=== PATIENT | female | born 1960 | race Caucasian/White ===

== ENCOUNTER 2020-05-09 14:30 | Outpatient (CLI) | payer OTHER, SELFPAY | END 2020-05-09 14:31 | disposition home or self-care (01) | LOC: ANHCOVIDVC 14:30 | PROVIDERS: PCP Family Medicine | DX: Z23 Encounter for immunization (principal) | CPT/HCPCS: 0001A; 91300 ==

== ENCOUNTER 2020-05-30 14:28 | Outpatient (CLI) | payer OTHER, SELFPAY | END 2020-05-30 14:29 | disposition home or self-care (01) | LOC: ANHCOVIDVC 14:29 | PROVIDERS: PCP Family Medicine | DX: Z23 Encounter for immunization (principal) | CPT/HCPCS: 0002A; 91300 ==

== ENCOUNTER 2020-09-11 11:22 | Emergency (ER) | payer OTHER, SELFPAY ==
[2020-09-11 11:32] VITALS: BP 129/69; PULSE 78; RESP 18; TEMP 36.8; O2SAT 100
--- NOTE | 2020-09-11 11:41 | ED.SKABFB ---
HPI - Skin/Abscess/Foreign Bdy General Chief complaint: Skin/Abscess/Foreign Body Stated complaint: Rt hand swelling History of Present Illness HPI narrative: This is a 60 year old that was stung by a bee yesterday on her hand . She has taken zyrtec D, Benadryl every 6 hours but her hand on the right has swelled up like a ballon and now it is going to her wrist up her arm and she knows she may needs something for it. Patient denies any shortness of breath and or any facial swelling no wheezing . Related Data Allergies Allergy/AdvReac Type Severity Reaction Status Date / Time bee venom protein (honey bee) AdvReac Intermediate Swelling Verified 09/11/20 11:59 [bees] Review of Systems Review of Systems: Narrative: CONSTITUTIONAL: Denies fever, chills, or sweats. EYES: Denies visual changes, redness, or discharge. ENT: Denies rhinorrhea, congestion, sore throat, or otalgia. CARDIOVASCULAR:Denies chest pain, palpitations, or edema. RESPIRATORY: Denies cough or dyspnea. GASTROINTESTINAL: Denies abdominal pain, nausea, vomiting, or diarrhea. GENITOURINARY: Denies dysuria or hematuria. SKIN:[Denies rash or itching. right hand swollen MUSCULOSKELETAL:Denies back pain, joint pain, or myalgia. NEUROLOGIC: Denies headache, numbness, or weakness. PSYCHIATRIC:Denies anxiety or depression PMFSH Past Medical History Medical History Internal hemorrhoid Social History Social History (Updated 08/09/20 @ 10:29 by Jessica Taylor) Years smoked: 30 Smoking status: Former smoker Tobacco type: cigarettes Second hand tobacco smoke exposure: No Smoking end date: 03/04/10 Alcohol intake: current Alcohol use details: social drinker Substance use: never Substance use type: does not use Gender identity (if verbalized by the patient): Female Comments At time as signature, I have reviewed and agree with nursing past medical, social, surgical and family history. Please see nursing chart for further information. There is no relevant family history pertinent to the presenting complaint. Exam Narrative: Exam Narrative: GENERAL:Well-appearing, well-nourished, and in no acute distress. HEAD:Normocephalic, atraumatic. EYES: PERRLA and EOMI. ENT: Nares clear, no rhinorrhea or epistaxis. Mucous membranes moist. NECK: Supple. CHEST: Clear to auscultation. No respiratory distress. HEART: Regular rate and rhythm. No murmur heard. Normal peripheral pulses. ABDOMEN: Soft, nontender, nondistended, normal active bowel sounds. EXTREMITIES: Normal range of motion. right hand 3+ edema up to wrist which is starting to swell no erythema no able to see where she was stung at. SKIN: Warm, dry, no rash. NEURO: No focal deficits. Alert and oriented x3. Course ADDICTION TREATMENT COUNSELOR/PA Physician Supervision Discussion with patient about allergic reaction and anaphylactic reaction. Use of epi pen etc... Vital Signs Vital signs: Vital Signs Temperature 98.3 F 09/11/20 11:32 Pulse Rate 78 09/11/20 11:32 Respiratory Rate 18 09/11/20 11:32 Blood Pressure 129/69 09/11/20 11:32 Pulse Oximetry 100 09/11/20 11:32 Temperature 98.3 F 09/11/20 11:32 Pulse Rate 78 09/11/20 11:32 Respiratory Rate 18 09/11/20 11:32 Blood Pressure 129/69 09/11/20 11:32 Pulse Oximetry 100 09/11/20 11:32 MDM - Skin/Abscess/Foreign Bdy Differential Diagnosis Differential diagnosis: Likely abscess of skin or subcutaneous tissue, urticaria, allergic reaction to drug, cellulitis, eczema, insect bites and impetigo Discharge Plan Discharge Clinical Impression: Allergic reaction to bee sting Patient Disposition: Home, Self-Care Condition: Stable Instructions: Antibiotic Form, Insect Bite or Sting (ED), Anaphylaxis (ED), Cold Compress or Soak (ED) Additional Instructions: Use skin creams/lotion, such as those containing calamine or pramoxine to reduce itchiness Avoid scratching
== END 2020-09-11 12:05 | disposition home or self-care (01) ==
PROVIDERS: Emergency Provider Nurse Practitioner Family; PCP Family Medicine
DX: T63.441A Toxic effect of venom of bees, accidental (unintentional), initial encounter (principal); Z87.891 Personal history of nicotine dependence
CPT/HCPCS: 96372; 99213; G0463; J1100

== ENCOUNTER 2023-05-13 14:52 | Outpatient (CLI) | payer OTHER, SELFPAY ==
--- NOTE | ~2023-05-13 | DEXA_ITS ---
Bone Density Report Name: LATANYA RODRIGES Age: 63 Sex: Female Ethnicity: White Date of : 1960 Indication: postmenopausal; screening for osteoporosis; height loss; hysterectomy; Referring Provider: MICHAEL PERRY Study: Bone densitometry was performed. Exam Date: May 13, 2023 Accession number: [id number] Bone Density: Region BMD T-score Z-score Classification AP Spine(L1-L4) 0.995 -0.5 1.0 Normal Femoral Neck (Left) 0.770 -0.7 0.6 Normal Total Hip (Left) 0.827 -0.9 0.1 Normal Femoral Neck (Right) 0.705 -1.3 0.0 Osteopenia Total Hip (Right) 0.851 -0.7 0.3 Normal Total Hip Mean 0.839 -0.8 0.2 Normal World Health Organization criteria for BMD impression classify patients as: Normal (T-score at or above -1.0), Osteopenia (T-score between -1.0 and -2.5), or Osteoporosis (T-score at or below -2.5). 10-year Fracture Risk(1): Major Osteoporotic Fracture 7.9% Hip Fracture 0.6% Reported Risk Factors: [place] (), Neck BMD=0.705, BMI=25.6 (1) FRAX(R) Version 3.08. Fracture probability calculated for an untreated patient. Fracture probability may be lower if the patient has received treatment. Previous Exams: Region Exam Age BMD T-score BMD Change BMD Change Date g/cm2 vs Baseline vs Previous AP Spine (L1-L4) 05/13/2023 63 0.995 -0.5 -0.070 (-6.6%) -0.070 (-6.6%) 09/09/2017 57 1.066 0.2 Total Hip(Left) 05/13/2023 63 0.827 -0.9 -0.037 (-4.2%) -0.037 (-4.2%) 09/09/2017 57 0.864 -0.6 Total Hip(Right) 05/13/2023 63 0.851 -0.7 0.035 (4.3%)* 0.035 (4.3%)* 09/09/2017 57 0.816 -1.0 *Denotes significance at 95% confidence level, LSC for AP Spine = 0.022 g/cm2, LSC for Total Hip = 0.027 g/cm2 Clinical Information Provided by Patient: Has used the following medications: Vitamin D, Calcium Has the following medical conditions: Hysterectomy Patient maximum height was 67 Menopause Age: 56 No regular weight bearing exercise Drinks caffeinated beverages Onset of menses at age 16 Number of children 2 Impression: The patient has low bone mass, based on the Right Femoral Neck T-score. The patient has an estimated ten-year risk of hip fracture of 0.6% and an estimated ten-year risk of major fracture of 7.9%, based on the WHO FRAX algorithm. The BMD for the AP Spine (L1-L4) decreased, changing by -6.6% since the last DXA exam. The BMD for the Total Hip(Left) decreased, changing by -4.2% since t
== END 2023-05-13 14:53 | disposition home or self-care (01) ==
LOC: ANHIMG 14:53
PROVIDERS: PCP Family Medicine; Visit Provider Physician Assistant
DX: N95.1 Menopausal and female climacteric states (principal); M85.851 Other specified disorders of bone density and structure, right thigh
CPT/HCPCS: 77080

== ENCOUNTER 2024-05-23 09:41 | Outpatient (CLI) | payer OTHER, SELFPAY ==
--- OUTSIDE RECORDS SUMMARY | 2024-05-23 09:45 | XMS_ITS | Encounter Summary ---
Author Organization [facility] Address [facility] [place] [address] Care Team Providers Care Paper Supervisor Name Role Phone Ty Muhammad MD Primary Care Provider [phone] Encounter Details Date Type Department Care Team (Latest Contact Info) Description 01/07/2018 Abstract [facility] , Angélica Stone MD Social History Tobacco Use Types Packs/Day Years Used Date Smoking Tobacco: Never Assessed Comments Unknown Sex and Gender Information Value Date Recorded Sex Assigned at Not on file Legal Sex Female 6:53 PM CDT Gender Identity Not on file Sexual Orientation Not on file documented as of this encounter Plan of Treatment Not on file documented as of this encounter Visit Diagnoses Not on filedocumented in this encounter Care Teams Paper Supervisor Relationship Specialty Start Date End Date Ty Muhammad MD [address] [facility] [address] [place] [address] PCP - General FAMILY PRACTICE 12/15/18 documented as of this encounter
--- OUTSIDE RECORDS SUMMARY | 2024-05-23 09:45 | XMS_ITS | Clinical Summary ---
Author Organization [facility] Address [facility] [place] [address] Care Team Providers Care Range Aide Name Role Phone Ty Muhammad MD Primary Care Provider [phone] Family History Medical History Relation Comments Lung Cancer Mother Breast Cancer Neg Hx Relation Status Comments Mother Social History Tobacco Use Types Packs/Day Years Used Date Smoking Tobacco: Never Assessed Comments Unknown Sex and Gender Information Value Date Recorded Sex Assigned at Not on file Legal Sex Female 6:53 PM CDT Gender Identity Not on file Sexual Orientation Not on file Last Filed Vital Signs Vital Sign Reading Time Taken Comments Blood Pressure 130/72 02/27/2013 11:51 AM TEXTILE CONSERVATOR Pulse 80 02/27/2013 11:51 AM TEXTILE CONSERVATOR Temperature - - Respiratory Rate - - Oxygen Saturation - - Inhaled Oxygen Concentration - - Weight 68.9 kg (152 lb) 02/27/2013 11:51 AM TEXTILE CONSERVATOR Height 170.2 cm (5' 7 ) 02/27/2013 11:51 AM TEXTILE CONSERVATOR Body Mass Index 23.81 02/27/2013 11:51 AM TEXTILE CONSERVATOR Plan of Treatment Health Maintenance Due Date Last Done Comments Cervical Cancer Screening Pap Smear (Age 30 to 64) Every 3 Years 1960 Colorectal Cancer Screening Colonoscopy (10 Years) 1960 Annual Physical 1965 Hepatitis C 01/22/1980 DTaP, Tdap and Td Vaccines (1 - Tdap) 1981 Cervical Cancer Screening Pap with HPV Testing (Age 30 to 64) Every 5 Years 01/22/1992 Cervical Cancer Screening with HPV 01/22/1992 COVID-19 Vaccine (2023-25 season) 2023 Influenza Adult (#1) 2023 Mammogram Screening 09/09/2025 09/10/2023, 05/02/2022, 03/13/2021, Additional history exists RSV Immunization or 60+ Years (1 - 1-dose 75+ series) 2037 Zoster Vaccines Completed 06/06/2018, 04/16/2018 Meningococcal B Vaccine Aged Out No l onger eligible based on patient's age to complete this topic Meningococcal Vaccine Aged Out No celestina bishnu eligible based on patient's age to complete this topic Pneumococcal Vaccine: Pediatrics (0 to 5 Years) and At-Risk Patients (6 to 64 Years) Aged Out No longer eligible based on patient's age to complete this topic RSV Immunizations Under 20 Months Aged Out No longer eligible based on patient's age to complete this topic Procedures Procedure Name Priority Date/Time Associated Diagnosis Comments MG SCREENING W EVELIN MILDRED DIGI Routine 09/10/2023 9:06 AM CDT Encounter for screening mammogram for malignant neoplasm of breast from Last 3 Months or Most Recently Relevant to Health Maintenance Results * MG SCREENING W EVELIN MILDRED DIGI (09/10/2023 9:06 AM CDT) Anatomical Region Laterality Modality Breast Bilateral Mammography 09/10/2023 11:0 6 AM CDT Impressions 09/10/2023 11:07 AM CDT ===== IMPRESSION: ===== 1. Stable mammographic appearance with no new findings to suggest malignancy in either breast. Assessment: ACR BI-RADS 2 - BENIGN FINDING(S) Recommendation: 1:Routine Screening Bilateral Comments: Ordered By: TY MUHAMMAD Interpreted By: Brad Christy MD, 09/10/2023 11:06 AM Narrative 09/10/2023 11:07 AM CDT Examination: Digital bilateral screening mammogram with 3D Tomosynthesis Exam Date/Time: 09/10/2023 8:46 AM Reason For Exam: sceening No prior breast procedures. No personal or family history of breast cancer. No current complaints. Comparison: Mammograms from 05/02/2022 03/13/2021 01/05/2020 Technique: Digital screening mammography of both breasts was performed in addition to 3-D Tomosynthesis technique. This study was read with the assistance of a computer-aided detection system. Tissue density: There are scattered areas of fibroglandular density. Findings: Benign axillary lymph nodes again seen. Benign punctate calcifications bilaterally. No suspicious interval change to parenchymal pattern bilaterally from prior studies. There is no new focal asymmetry, dominant mass lesion, area of skin thickening, or cluster of suspicious appearing calcifications in either breast to suggest malignancy. us Ty Muhammad MD MAMMO Final Result from Last 3 Months or Most Recently Relevant to Health Maintenance Insurance [facility] Care Teams Range Aide Relationship Specialty Start Date End Date Ty Muhammad MD [address] [address] [address] [place] [address] PCP - General FAMILY PRACTICE 12/15/18
[2024-05-23 10:09] LABS: Basophils Percent Auto 0.6 % (0.2-1.2); Eosinophils Absolute Auto 0.1 K/mm3 (0-0.3); Eosinophils Percent Auto 1.5 % (0-4.4); Hematocrit 37.1 % (37.0-47.0); Hemoglobin 11.5 g/dL (12.0-15.0); Immature Granulocyte Absolute 0.02 K/mm3 (0.00-0.031); Immature Granulocyte Percent A 0.3 % (0-0.5); Lymphocytes Absolute Auto 1.69 K/mm3 (0.9-3.2); Lymphocytes Percent Auto 26.1 % (18.3-44.2); Mean Corpuscular Hemoglobin 25.8 pg (26-34); Mean Corpuscular Volume 83.2 fl (80-100); Mean Platelet Volume 10.3 fl (7.4-10.4); Monocytes Absolute Auto 0.3 K/mm3 (0.1-0.6); Monocytes Percent Auto 4.5 % (2.6-8.5); Neutrophils Absolute Auto 4.3 K/mm3 (1.3-6.7); Platelet Count Result 330 k/mm3 (150-375); Red Blood Count 4.46 M/mm3 (4.2-5.4); Red Cell Distribution Width 14.2 % (11.5-14.5); White Blood Count 6.5 K/mm3 (4.5-10.0)
[2024-05-23 10:18] LABS: Iron 46 ug/dL (37-170)
[2024-05-23 10:28] LABS: Percent Iron Saturation 14 % (20-50)
== END 2024-05-23 09:42 | disposition home or self-care (01) ==
LOC: ANHLAB 09:43
PROVIDERS: PCP Family Medicine; Visit Provider Student in an Organized Health Care Education/Training Program
DX: D50.9 Iron deficiency anemia, unspecified (principal)
CPT/HCPCS: 36415; 83540; 83550; 85025

== ENCOUNTER 2024-06-04 01:55 | Day surgery (SDC) | payer OTHER, SELFPAY ==
[2024-05-25 13:56] VITALS: BMI 21.5
--- OUTSIDE RECORDS SUMMARY | 2024-06-04 01:58 | XMS_ITS | Encounter Summary ---
Author Organization [facility] Address [facility] [place] [address] Care Team Providers Care Grey Goods Tester Name Role Phone Ty Muhammad MD Primary Care Provider [phone] Encounter Details Date Type Department Care Team (Latest Contact Info) Description 01/07/2018 Abstract [facility] , Angélica Stone MD [...] on filedocumented in this encounter Care Teams Grey Goods Tester Relationship Specialty Start Date End Date Ty Muhammad MD [address] [facility] [address] [place] [address] PCP - General FAMILY PRACTICE 12/15/18 documented as of this encounter
--- OUTSIDE RECORDS SUMMARY | 2024-06-04 01:58 | XMS_ITS | Clinical Summary ---
Author Organization [facility] Address [facility] [place] [address] Care Team Providers Care Account Engineer Name Role Phone Ty Muhammad MD Primary Care Provider [phone] Family History Medical History Relation Comments Lung [...] Comments Blood Pressure 130/72 02/27/2013 11:51 AM REGULATORY MANAGER Pulse 80 02/27/2013 11:51 AM REGULATORY MANAGER Temperature - - Respiratory Rate - - Oxygen Saturation - - Inhaled Oxygen Concentration - - Weight 68.9 kg (152 lb) 02/27/2013 11:51 AM REGULATORY MANAGER Height 170.2 cm (5' 7 ) 02/27/2013 11:51 AM REGULATORY MANAGER Body Mass Index 23.81 02/27/2013 11:51 AM REGULATORY MANAGER Plan of Treatment Health Maintenance Due Date [...] Cancer Screening with HPV 01/22/1992 COVID-19 Vaccine (2023- season) 2023 Mammogram Screening 09/09/2025 09/10/2023, 05/02/2022, 03/13/2021, [...] calcifications in either breast to suggest malignancy. Ty Muhammad MD MAMMO Final Result from Last 3 Months or Most Recently Relevant to Health Maintenance [facility] Care Teams Account Engineer Relationship Specialty Start Date End Date Ty Muhammad MD [address] [place] [address] PCP - General FAMILY PRACTICE 12/15/18
[2024-06-04 08:13] VITALS: BP 140/84; PULSE 70; RESP 16; TEMP 36; O2SAT 100; BMI 24.3
[2024-06-04] MEDS: LACTATED RINGERS 1,000 ML 150 ML IV CONT (08:22)
--- NOTE | 2024-06-04 09:02 | PM.HPGS ---
History of Present Illness History of Present Illness Consent: Risks, benefits, and alternatives have been discussed and questions answered. Patient agrees to proceed with procedure. Chief complaint: hx of colon polyps Narrative: Vanessa Astorga is a 64 year old female with colon polyp, last colonoscopy 2019 Review of Systems Review of Systems: All systems reviewed & are unremarkable except as noted in HPI and below PMFSH Past Medical History Medical History (Updated 06/04/24 @ 09:02 by Nico Juarez MD) Colon polyp Internal hemorrhoid Social History Social History Social History: Years smoked: 30 Smoking status: Former smoker Tobacco type: cigarettes Second hand tobacco smoke exposure: No Smoking end date: 03/04/10 Alcohol intake: current Alcohol use details: social drinker Substance use: never Substance use type: does not use Living arrangements: with family Occupation/Education: occupation Gender identity (if verbalized by the patient): Female Sexual Orientation (if Verbalized by the Patient): Straight or Heterosexual Meds Home Medications and Allergies Home Medications ?Medication ?Instructions ?Recorded ?Confirmed ?Type cyclobenzaprine 5 mg tablet 5 mg PO DAILY PRN muscle spasm #30 05/13/23 05/25/24 Rx tabs calcium 166.66 mg-vit D3 0.83 1 cap PO DAILY 05/25/24 06/04/24 History mcg-mag 83 ct-G5-gdfap-K1-mins capsule (Calcium Complex) multivitamin (Daily Multi-Vitamin 1 tablet PO DAILY 05/25/24 06/04/24 History tablet) Allergies Allergy/AdvReac Type Severity Reaction Status Date / Time bee venom protein (honey AdvReac Intermediate Swelling Verified 06/04/24 08:12 bee) (bees) Vital Signs Vital Signs - 24 hr 06/04/24 08:13 Temperature 96.8 F L Pulse Rate 70 Respiratory Rate 16 Blood Pressure 140/84 Pulse Oximetry 100 Oxygen Delivery Room Air Exam Const: General: comfortable and no acute distress HENMT: Face/Nose/Sinus: Normal nares present Eyes: General: appearance normal, both eyes and all related structures Neck: Neck: no JVD Resp: Auscultation: clear to auscultation bilaterally Cardio: Rate: regular rate Rhythm: regular rhythm GI: Inspection: non-distended GI Palp: Yes Soft to palpation Skin: General skin exam: normal color Extrem: General: normal to inspection Psych: Mental Status: mental status grossly normal Assessment and Plan Assessment and plan (1) Colon polyp: Code(s): K63.5 - Polyp of colon Status: Acute Assessment and Plan: colonoscopy
--- NOTE | 2024-06-04 09:03 | WPDANESEPPF ---
Anes - Initial Pre Proc Eval Procedure: Operation Date: 06/04/24 09:30 Proposed Procedures p Colonoscopy - Nico Juarez MD Date/Time: 06/04/24 09:03 Surgeon: Nico Juarez MD Pre Op Diagnosis: hx of colon polyps Patient Data Age: 64 Gender: F Height: 1.7 m Weight: 70.5 kg Last Vital Signs Temp 96.8 F L 06/04/24 08:13 Pulse 70 06/04/24 08:13 Resp 16 06/04/24 08:13 BP 140/84 06/04/24 08:13 Pulse Ox 100 06/04/24 08:13 O2 Del Method Room Air 06/04/24 08:13 Allergies Allergy/AdvReac Type Severity Reaction Status Date / Time bee venom protein (honey AdvReac Intermediate Swelling Verified 06/04/24 08:12 bee) (bees) Home Medications ?Medication ?Instructions ?Recorded ?Confirmed ?Type cyclobenzaprine 5 mg tablet 5 mg PO DAILY PRN muscle spasm #30 05/13/23 05/25/24 Rx tabs calcium 166.66 mg-vit D3 0.83 1 cap PO DAILY 05/25/24 06/04/24 History mcg-mag 83 no-H9-bjhdp-K1-mins capsule (Calcium Complex) multivitamin (Daily Multi-Vitamin 1 tablet PO DAILY 05/25/24 06/04/24 History tablet) Patient hx anesthesia problems: none Family hx anesthesia problems: none Results Review: All pre-operative results and documents have been reviewed as part of the pre-operative evaluation. [facility] Past Medical History Medical History (Updated 06/04/24 @ 09:02 by Nico Juarez MD) Colon polyp Internal hemorrhoid Social History Social History Social History: Years smoked: 30 Smoking status: Former smoker Tobacco type: cigarettes Second hand tobacco smoke exposure: No Smoking end date: 03/04/10 Alcohol intake: current Alcohol use details: social drinker Substance use: never Substance use type: does not use Living arrangements: with family Occupation/Education: occupation Gender identity (if verbalized by the patient): Female Sexual Orientation (if Verbalized by the Patient): Straight or Heterosexual Anes - Eval Final PreProcedure Day of Procedure 06/04/24 09:03 Patient weight: normal Heart: regular rate and rhythm Lungs: clear to auscultation Airway: Mallampati scale class II Neurological: alert and oriented Last oral intake: >/= 8 hours ASA classification: II Emergent: no Anesthetic plan: proceed Anesthesia type and monitoring: general GIVS and standard monitoring Results Review: All pre-operative results and documents have been reviewed as part of the pre-operative evaluation. Informed Consent: The patient's anesthetic plan and its attendant risks and benefits were discussed with the patient/family/POA. Questions were solicited and answers provided to the satisfaction of the patient/family/POA.
[2024-06-04 09:26] VITALS: BP 92/50; PULSE 58; RESP 16; O2SAT 100
[2024-06-04 09:36] VITALS: BP 110/72; PULSE 62; RESP 19; O2SAT 100
[2024-06-04 09:46] VITALS: BP 111/68; PULSE 56; RESP 16; O2SAT 100
== END 2024-06-04 10:02 | disposition home or self-care (01) ==
PROVIDERS: PCP Family Medicine; Referring Provider Physician Assistant Medical; Visit Provider Internal Medicine Gastroenterology
PROC: 0DJD8ZZ Inspection of Lower Intestinal Tract, Via Natural or Artificial Opening Endoscopic (ICD-10-PCS; CPT 45378; principal; 2024-06-04 09:30)
DX: Z12.11 Encounter for screening for malignant neoplasm of colon (principal); K64.8 Other hemorrhoids; Z86.0100 Personal history of colon polyps, unspecified; Z87.891 Personal history of nicotine dependence
CPT/HCPCS: 45378; J2003; J2704; J7120

== ENCOUNTER 2025-01-02 08:41 | Outpatient (CLI) | payer OTHER, SELFPAY ==
--- OUTSIDE RECORDS SUMMARY | 2025-01-02 08:45 | XMS_ITS | Encounter Summary ---
Author Organization [facility] Address [facility] [place] [address] Care Team Providers Care Bilingual Interpreter Name Role Phone Ty Muhammad MD Primary Care Provider [phone] Encounter Details Date Type Department Care Team (Latest Contact Info) Description 01/07/2018 Abstract [facility] , Angélica Stone MD Social [...] on filedocumented in this encounter Care Teams Bilingual Interpreter Relationship Specialty Start Date End Date Ty Muhammad MD [address] [facility] [address] [place] [address] PCP - General FAMILY PRACTICE 12/15/18 documented as of this encounter
[2025-01-02 08:58] LABS: Hematocrit 33.0 % (37.0-47.0); Hemoglobin 9.9 g/dL (12.0-15.0); Mean Corpuscular HGB Conc 30.0 g/dl (32-36); Mean Corpuscular Hemoglobin 23.8 pg (26-34); Mean Corpuscular Volume 79.3 fl (80-100); Platelet Count Result 348 k/mm3 (150-375); Red Blood Count 4.16 M/mm3 (4.2-5.4); White Blood Count 6.2 K/mm3 (4.5-10.0)
[2025-01-02 09:09] LABS: Iron 23 ug/dL (37-170)
[2025-01-02 09:19] LABS: Alanine Aminotransferase 18 U/L (6-35); Albumin Level 4.6 g/dL (3.5-5.1); Alkaline Phosphatase 96 U/L (38-126); Anion Gap 9 mmol/L (4-12); Aspartate Amino Transferase 38 U/L (14-36); Bilirubin,Total 0.3 mg/dL (0.2-1.3); Blood Urea Nitrogen 13 mg/dL (7-17); Calcium 9.4 mg/dL (8.4-10.2); Carbon Dioxide 25 mmol/L (22-30); Chloride 103 mmol/L (98-107); Estimated Glomerular Filt Rate > 60; Glucose 99 mg/dL (65-110); Percent Iron Saturation 7 % (20-50); Potassium 4.2 mmol/L (3.4-5.0); Sodium 137 mmol/L (137-145); Total Protein 7.6 g/dL (6.3-8.2)
[2025-01-02 09:26] LABS: Hemoglobin A1C 5.4 % (<5.7)
[2025-01-02 09:45] LABS: Ferritin 5.22 ng/mL (11.1-264)
[2025-01-02 09:49] LABS: Thyroid Stimulating Hormone 1.850 uIU/mL (0.465-4.680)
== END 2025-01-02 08:42 | disposition home or self-care (01) ==
PROVIDERS: PCP Family Medicine; Visit Provider Physician Assistant Medical
DX: Z00.00 Encounter for general adult medical examination without abnormal findings (principal); D64.9 Anemia, unspecified; E78.5 Hyperlipidemia, unspecified
CPT/HCPCS: 36415; 80053; 82728; 83036; 83540; 83550; 84443; 85027